=== PATIENT | male | born 1990 | race Hispanic/Latino ===

== ENCOUNTER 2021-10-28 15:08 | Inpatient (IN) | payer OTHER, SELFPAY ==
[2021-10-28] MEDS ORDERED: Boostrix 0.5 ML (Tdap) VIAL ONE (16:56)
[2021-10-28] MEDS ORDERED: CEFAZOLIN 1 GM VIAL ONE (16:56)
[2021-10-28 18:14] LABS: SARS-CoV-2 NAA Rapid Test Not Detected (NotDetected)
[2021-10-28] MEDS ORDERED: Morphine 4 MG/ML VIAL SLOW IVP PRN (19:55)
[2021-10-28] MEDS ORDERED: Promethazine HCl 25 MG/ML VIAL IM PRN ×2 (19:55→22:17)
[2021-10-28] MEDS ORDERED: Acetaminophen 325 MG TAB PO PRN (19:55)
[2021-10-28] MEDS ORDERED: Milk Of Magnesia 30 ML UDCUP PO PRN (19:55)
[2021-10-28] MEDS ORDERED: traMADol HCl 50 MG TAB PO PRN (19:55)
[2021-10-28] MEDS ORDERED: Ondansetron PF 4 MG/2 ML Vial IVP PRN (19:55)
[2021-10-28] MEDS ORDERED: Fentanyl 100 MCG/2 ML VIAL SLOW IVP PRN (19:55)
[2021-10-28] MEDS ORDERED: HYDROcodone/Acetaminophen 5/325 mg Tablet PO PRN (19:55)
[2021-10-28] MEDS ORDERED: fentaNYL Citrate/PF 100 MCG/2 ML SYRINGE ONE (19:57)
[2021-10-28] MEDS ORDERED: Communication Order-Pharmacy FS SCH (20:00)
[2021-10-28] MEDS ORDERED: TETANUS AND DIPHTHERIA TOX/PF 0.5 ML DISP.SYRIN IM SCH (20:00)
[2021-10-28 20:14] LABS: #Eosinphils 0.1 thou/uL (0.0-0.7); #Lymphocytes 1.4 thou/uL (1.20-3.40); #Monocytes 0.5 thou/uL (0.11-0.59); #Neutrophils 9.3 thou/uL (1.40-6.50); %Basophils 0.2 % (0.0-1.0); %Eosinophils 0.5 % (0.0-10.0); %Lymphocytes 12.8 % (21.0-51.0); %Monocytes 4.3 % (0.0-10.0); %Neutrophils 82.2 % (42.0-75.0); Hemoglobin 16.1 g/dL (14.0-18.0); Mean Corpuscular HGB CONC 33.1 g/dL (32.0-36.0); Mean Corpuscular Hemoglobin 30.7 pg (27.0-31.0); Mean Corpuscular Volume 92.7 fL (78.0-98.0); Mean Platelet Volume 8.1 fL (7.4-10.4); Platelet Count 203 thou/uL (130-400); Red Blood Cell (RBC) Count 5.25 mill/uL (4.70-6.10); White Blood Cell (WBC) Count 11.3 thou/uL (4.8-10.8)
[2021-10-28] MEDS ORDERED: Pharmacy to Dose ABXS IVPB PRN (20:14)
[2021-10-28] MEDS ORDERED: Dexamethasone 20 MG/5 ML VIAL ONE (20:18)
[2021-10-28] MEDS ORDERED: Succinylcholine 200 MG/10 ml SYRINGE FS ONE (20:18)
[2021-10-28] MEDS ORDERED: PROPOFOL 200 MG/20 ML VIAL ONE (20:18)
[2021-10-28] MEDS ORDERED: Ondansetron PF 4 MG/2 ML Vial ONE (20:18)
[2021-10-28] MEDS ORDERED: Bacitracin Zinc Ointment 30 gm TUBE ONE (20:18)
[2021-10-28] MEDS ORDERED: Lidocaine 1% PF 5 ML VIAL ONE (20:18)
[2021-10-28] MEDS ORDERED: Neomycin-Polymyxin 1 ML AMP ONE (20:18)
[2021-10-28] MEDS ORDERED: Bupivacaine PF 0.5% 30 ML VIAL ONE (20:18)
[2021-10-28] MEDS ORDERED: Ketorolac Tromethamine 30 MG/ML VIAL ONE (20:18)
[2021-10-28 20:35] LABS: ALT (SGPT) 44 U/L (8-55); AST (SGOT) 34 U/L (5-34); Albumin 4.8 g/dL (3.5-5.0); Alkaline Phosphatase 95 U/L (40-110); Anion Gap 13 mmol/L (10-20); BUN (Urea Nitrogen) 19 mg/dL (8.9-20.6); Bilirubin, Total 0.6 mg/dL (0.2-1.2); Calc. Creatinine Clearance 0 mL/min (70-130); Calcium 9.6 mg/dL (7.8-10.44); Carbon Dioxide 26 mmol/L (22-29); Chloride 105 mmol/L (98-107); Globulin 3.5 g/dL (2.4-3.5); Glucose 86 mg/dL (70-105); Potassium 3.8 mmol/L (3.5-5.1); Protein, Total 8.3 g/dL (6.0-8.3); Sodium 140 mmol/L (136-145)
[2021-10-28] MEDS ORDERED: Promethazine HCl 25 MG/ML VIAL IVPB PRN (22:17)
[2021-10-28] MEDS ORDERED: Ondansetron HCl/PF 4 MG/2 ML Vial IVP PRN (22:17)
[2021-10-28] MEDS ORDERED: Ketorolac Tromethamine 30 MG/ML VIAL IVP PRN (22:43)
[2021-10-28] MEDS ORDERED: Fentanyl 100 MCG/2 ML VIAL ONE (22:46)
[2021-10-29 00:06] VITALS: BMI 29.0
[2021-10-29] MEDS: Aspirin 81 mg Enteric Coated Tablet PO SCH ×2 (00:08→10:01)
[2021-10-29] MEDS: Gentamicin Sulfate 80 MG in Premix Bag 1 BAG IVPB SCH ×2 (01:14→10:01)
[2021-10-29] MEDS: Vancomycin 1 GM in Premix Bag 1 BAG IVPB SCH ×2 (04:49→12:49)
[2021-10-29] MEDS ORDERED: Gentamicin 80 MG/2 ML VIAL IM SCH (06:00)
[2021-10-29 16:49] VITALS: BP 107/71; TEMP 97.8
== END 2021-10-29 18:44 | disposition home or self-care (01) | DRG 514 ==
LOC: ERS 15:08 → SDC/OP 20:09 → SJJU 23:07 → EDBD 23:07
PROVIDERS: ADMIT Orthopaedic Surgery Hand Surgery; ATTEND Orthopaedic Surgery Hand Surgery
PROC: 0PST04Z Reposition Right Finger Phalanx with Internal Fixation Device, Open Approach (ICD-10-PCS; principal; 2021-10-28)
PROC: 0HQQXZZ Repair Finger Nail, External Approach (ICD-10-PCS; 2021-10-28)
PROC: 0LQ70ZZ Repair Right Hand Tendon, Open Approach (ICD-10-PCS; 2021-10-28)
PROC: 0HDQXZZ Extraction of Finger Nail, External Approach (ICD-10-PCS; 2021-10-28)
DX: S62.622B Displaced fracture of middle phalanx of right middle finger, initial encounter for open fracture (principal); Z23 Encounter for immunization; Z20.822 Contact with and (suspected) exposure to COVID-19; S62.632B Displaced fracture of distal phalanx of right middle finger, initial encounter for open fracture; S61.314A Laceration without foreign body of right ring finger with damage to nail, initial encounter; S61.411A Laceration without foreign body of right hand, initial encounter; Z90.49 Acquired absence of other specified parts of digestive tract; W27.0XXA Contact with workbench tool, initial encounter; Y92.69 Other specified industrial and construction area as the place of occurrence of the external cause; Y99.0 Civilian activity done for income or pay
CPT/HCPCS: 76000; 80053; 85025; 90471; 90715; 96365; C1894; J0690; J1100; J1580; J1885; J2405; J2704; J3010; J3370; S0020; U0002